=== PATIENT | male | born 1960 | race Caucasian/White ===

== ENCOUNTER 2019-05-11 13:28 | Inpatient (IN) ==
[2019-05-11 14:36] LABS: URINE SOURCE CLEAN CATCH
[2019-05-11 14:41] LABS: ALLEN TEST YES; BE 5.8 mmoll (-3.0-3.0); BLOOD TYPE ARTERIAL; HCO3-(ACT) 29.4 mmoll (20.0-26.0); METHB 0.9 % (0.0-1.5); O2(CT) 17.7 mL/dL (15.0-23.0); O2HB 94.6 % (95.0-99.0); PCO2(98.6) 44 mmHg (35-45); PO2(98.6) 73 mmHg (60-100); SAMPLE BLOOD; SAO2 96.4 % (95.0-100.0); THB 13.3 g/dL (11.5-17.4); pH(98.6) 7.45 (7.35-7.45)
[2019-05-11 14:42] LABS: MODALITY CANNULA
--- NOTE | 2019-05-11 14:45 | Diag Imaging Result Doc PS360 ---
EXAM: CHEST-1 VIEW 05/11/2019 HISTORY: SOB TECHNIQUE: Erect AP portable at 1434 COMMENT: Compared to 04/14/2019 there has been minimal improvement with regard to the right lung. Some of this may be due to differences in inspiration. There are still scattered coarse opacities bilaterally.This is still worse than on 12/02/2017. IMPRESSION: Pulmonary edema and/or pneumonia. Electronically signed by Javon Blankenship 05/11/2019 2:43 PM
[2019-05-11 14:47] LABS: BILIRUBIN URINE NEGATIVE (NEGATIVE); BLOOD URINE SMALL (NEGATIVE); COLOR YELLOW; GLUCOSE URINE NEGATIVE (NEGATIVE); KETONE URINE NEGATIVE (NEGATIVE); LEUKOCYTES URINE NEGATIVE (NEGATIVE); NITRITE URINE NEGATIVE (NEGATIVE); PROTEIN URINE 30 mg/dL (NEGATIVE); SP GRAVITY URINE 1.019; TURBIDITY URINE CLEAR (CLEAR); UROBILINOGEN URINE 3 mg/dL (NORMAL)
[2019-05-11 14:48] LABS: UR EPITHELIAL CELLS <10 /HPF (<10); URINE BACTERIA NEGATIVE /HPF; URINE RBC <10 /HPF (<10); URINE WBC <10 /HPF (<10)
[2019-05-11] MEDS ORDERED: TYLENOL PR ONE (14:48)
[2019-05-11] MEDS ORDERED: NS 1,000 ML IV ONE (14:48)
[2019-05-11] MEDS ORDERED: NS 2,100 ML IV ONE (14:50)
[2019-05-11] MEDS ORDERED: TYLENOL ONE (14:56)
[2019-05-11] MEDS ORDERED: NS 1,000 ML ONE (14:56)
[2019-05-11 14:57] LABS: UR AMPHETAMINES QUAL PRESUMPTIVE POSITIVE (NONE DETECT); UR BARBITUATES QUAL NONE DETECTED (NONE DETECT); UR BENZODIAZEPIN QUAL NONE DETECTED (NONE DETECT); UR CANNABINOIDS QUAL NONE DETECTED (NONE DETECT); UR COCAINE QUAL NONE DETECTED (NONE DETECT); UR METHADONE QUAL NONE DETECTED (NONE DETECT); UR OPIATES QUAL PRESUMPTIVE POSITIVE (NONE DETECT); UR OXYCODONE QUAL NONE DETECTED (NONE DETECT); UR PCP QUAL NONE DETECTED (NONE DETECT)
[2019-05-11 14:58] LABS: LYMPH# 0.38 X1000 (1.2-3.4); LYMPH% 2.6 % (20.5-51.1); MCH 28.3 PG (27-31); MCHC 32.5 g/dL (33-37); MONO# 1.01 X1000 (0.11-0.59); MONO% 6.9 % (1.7-9.3); MPV 11.6 FL (7.4-10.4); NEUT# 13.23 X1000 (1.4-6.5); NEUT% 90.5 % (42.2-75.2); PLT 309 X1000 (130-400); RDW 15.7 % (11.5-14.5); WBC 14.62 X1000 (4.8-10.8)
[2019-05-11 15:02] LABS: INR 1.03; PROTIME 13.7 Seconds (11.0-16.0)
[2019-05-11 15:03] LABS: PTT 33.6 Seconds (22.3-41.8)
[2019-05-11 15:14] LABS: AGAP 14; ALB/GLOB RATIO 0.9; ALBUMIN 3.3 g/dL (3.5-5.0); ALKALINE PHOSPHATASE 123 U/L (32-122); BUN 11 mg/dL (8-22); CHLORIDE 91 mmol/L (98-107); CK PROFILE 100 U/L (24-204); COSMO 266; CREATININE 0.8 mg/dL (0.7-1.2); ESTIMATED GFR > 60; GLUCOSE 104 mg/dL (70-104); GOT 28 U/L (10-34); GPT 29 U/L (10-44); POTASSIUM 4.7 mmol/L (3.5-5.1); SODIUM 133 mmol/L (136-145); TCO2 28 mmol/L (25-35); TOTAL BILIRUBIN 1.24 mg/dL (0.20-1.00); TOTAL PROTEIN 6.9 g/dL (6.3-8.3)
[2019-05-11] MEDS ORDERED: ZOSYN 3.375 GM in NS 50 ML IV ONE (15:18)
[2019-05-11] MEDS ORDERED: SOLU-MEDROL IV ONE (16:28)
--- NOTE | 2019-05-11 16:55 | PROVIDER DOCUMENTATION ---
This chart was entered by Yadi Nicolas Scribe, acting as scribe for Walter Nieves CRNP. HPI-Respiratory General - General Chief Complaint: Fever Stated Complaint: COUGH, SOB, FEVER Time Seen by Provider: 05/11/19 14:04 Source: patient, family (spoke with on the phone), EMS (first response) Unable to obtain history due to:: altered Allergies/Adverse Reactions: Patient Allergies Allergy/AdvReac Type Severity Reaction Status Date / Time No Known Allergies Allergy Verified 05/11/19 14:33 Home Medications: Home Medication List Medication Instructions Recorded Confirmed Last Taken Type Cyclobenzaprine [Flexeril] 10 mg PO TID PRN 07/18/13 11/13/13 11/13/13 05:00 History Esomeprazole [Nexium] 40 mg PO DAILY 07/18/13 11/13/13 11/13/13 05:00 History Gabapentin [Neurontin] 600 mg PO TID 07/18/13 11/13/13 11/13/13 05:00 History Hydroxyzine [Atarax] 25 mg PO BID PRN 07/18/13 11/13/13 11/13/13 15:00 History Potassium Chloride E.r. [K-Dur] 10 meq PO DAILY 07/18/13 11/13/13 11/13/13 05:00 History Prednisone 10 mg PO DAILY 07/18/13 11/13/13 11/13/13 05:00 History Oxycodone HCl/Acetaminophen 1 each PO Q6H PRN PRN 11/14/13 11/14/13 11/13/13 17:00 History [Endocet 7.5-325 mg Tablet] Albuterol 2.5MG/Ipratrop 0.5MG 3 ml INH Q6H PRN PRN #30 neb 08/26/16 Unknown Rx [Duoneb] Azithromycin [Zithromax Z-Luis M] 250 mg PO DIRECTED #1 pkg 08/26/16 Unknown Rx Prednisone 20 mg PO DAILY #60 tablet 08/26/16 Unknown Rx - History of Present Illness-Resp Nature of Presenting Problem: 58 yowm presents to the ed ed via ems with emergency traffic. pt comes in with ams, cough, fever and significant respiratory distress. was called and re ports his son came to visit from [place] and pt has been out in public and been in and out of stores. pt has hx of [place] poisoning. sts pt has had fever, cough, sob, confusion, diaphoresis with acute onset at 0100am this morning. per via phone conversation he has worsened since onset Severity in ED: reports: severe Onset/Duration: reports: this morning (0100am) Timing: reports: still present, constant, getting worse Context: reports: other (son recently came home from [place] and had contact with pt) Cough Quality/Degree: reports: moderate, dry cough Episode Frequency: frequent episodes Current Respiratory Medication Therapy: Initiated see nurses note Modifying Factors: worse with: coughing Associated Symptoms: reports: cough, fever/chills, shortness of breath, sweaty Similar Symptoms Previously?: Yes (copd) Recently seen or treated by another doctor?: No Review of Systems - Adult - REVIEW OF SYSTEMS - ADULT ROS:: unobtainable per condition Constitutional: reports: chills, fever Eyes: reports: no symptoms reported Ears, Nose, Mouth & Throat: reports: no symptoms reported Cardiovascular: denies: chest pain, edema Respiratory: reports: see HPI, cough, shortness of breath Gastrointestinal: reports: no symptoms reported Genitourinary: reports: no symptoms reported Musculoskeletal: reports: see HPI, back pain (chronic) Integumentary: reports: no symptoms reported Neurological: reports: no symptoms reported Psychiatric: reports: no symptoms reported Endocrine: reports: no symptoms reported Hematologic/Lymphatic: reports: no symptoms reported Allergic/Immunologic: reports: no symptoms reported All Other Systems: Reviewed and Negative Past History - Adult - PAST MEDICAL HISTORY-ADULT Review of Records: reports: Old Records Reviewed, Nursing Assessment Review, Medications Reviewed, Social history reviewed & non-contributory. Major Childhood Illnesses: reports: denies history Cardiovascular: reports: HTN, hyperlipidemia Respiratory: reports: COPD, cancer (lung cancer in remission) Gastrointestinal: reports: denies history Genitourinary: reports: other (born with single kidney) Musculoskeletal: reports: chronic pain Neurological: reports: denies history Psychiatric: reports: anxiety Endocrine/Immune: reports: denies history Other Conditions: reports: denies history Additional History: cobalt poisoning - PRIOR SURGERIES/PROCEDURES Surgical/Procedure History: reports: other (pain pump) - IMMUNIZATION STATUS Childhood Immunizations: See Nurse Assessment Flu Vaccine: See Nurse Assessment - FAMILY HISTORY Family History: reviewed, not pertinent - SOCIAL HISTORY Smoking: chew Provider spent 3-5 mins advising pt. on dangers of tobacco.: Discussed manners to quit use, and f/u contacts for add'l counseling. Substance Use: denies Living Situation: family Physical Exam-General - PHYSICAL EXAM-ADULT Exam Limited by: pt has intermittent ams Initial Vital Signs Reviewed: Yes (temp-100.8 HR-135 RR28) - CONSTITUTIONAL General Appearance: alert, severe distress - EYES Eyes: PERRL/EOMI, pale conjunctivae - HEAD, EARS, NOSE, MOUTH & THROAT HENMT: other (no teeth). negative: moist mucous membranes (dry oral) - NECK Neck: normal inspection - RESPIRATORY Respiratory: respiratory distress (signaficant), decreased breath sounds (bilateral upper), accessory muscle use, rales (bilateral lower), rhonchi (bilateral lower), increased rate (428) - CARDIOVASCULAR Cardiovascular: tachycardia (130) - CHEST (BREASTS) Chest/Breast: other (barrel chest) - GASTROINTESTINAL (ABDOMEN) Abdominal Exam: soft - GENITOURINARY Male Genitalia: deferred Rectal Exam: deferred Hemoccult Exam: deferred - LYMPHATIC Lymphatic: no adenopathy - MUSCULOSKELETAL Back Exam: no CVA tenderness, no vertebral tenderness Extremity: normal range of motion - SKIN Integumentary: diaphoresis, other (flushed) - PSYCHIATRIC Psych/Mental Status: disoriented x 3, disheveled Progress - PLAN OF CARE/RESULTS Progress/Plan/Lab Results: Vital Signs - 8 hr 05/11/19 14:19 05/11/19 14:43 05/11/19 16:18 Temperature 100.8 F H Pulse Rate 135 H 132 H 108 H Respiratory Rate 28 H 23 24 Blood Pressure 138/59 109/68 145/94 O2 Sat by Pulse Oximetry 95 94 L 98 05/11/19 16:28 Temperature 98 F Pulse Rate Respiratory Rate Blood Pressure O2 Sat by Pulse Oximetry 05/11/19 13:50 Influenza Screen - Final Nasopharyngeal 05/11/19 13:50 Group A Strep Rapid Antigen - Final Throat Laboratory Results - last 24 hr 05/11/19 05/11/19 05/11/19 13:50 13:50 13:50 WBC 14.62 H RBC 4.60 L Hgb 13.0 L Hct 40.0 L MCV 87.0 MCH 28.3 MCHC 32.5 L RDW Std Deviation 15.7 H Plt Count 309 MPV 11.6 H Neut % (Auto) 90.5 H Lymph % (Auto) 2.6 L [place] % (Auto) 6.9 Eos % (Auto) 0.0 Baso % (Auto) 0.0 Neut # (Auto) 13.23 H Lymph # (Auto) 0.38 L [place] # (Auto) 1.01 H Eos # (Auto) 0.00 Baso # (Auto) 0.00 PT INR PTT (Actin FS) Specimen Type Sample Site pH pCO2 pO2 HCO3 Base Excess Oxyhemoglobin ABG O2 Sat (Calculated) ABG O2 Saturation ABG Carboxyhemoglobin ABG Methemoglobin Ronni Test A-a O2 Difference Total Hemoglobin Lactate Blood Gas Modality FiO2 % Sodium 133 L Potassium 4.7 Chloride 91 L Carbon Dioxide 28 Anion Gap 14 BUN 11 Creatinine 0.8 Estimated GFR/1.73 m2 > 60 BUN/Creatinine Ratio 14 Glucose 104 Calculated Osmolality 266 Calcium 9.0 Total Bilirubin 1.24 H AST 28 ALT 29 Alkaline Phosphatase 123 H Creatine Kinase 100 Troponin T High Sens 34 H Total Protein 6.9 Albumin 3.3 L Globulin 3.6 Albumin/Globulin Ratio 0.9 Plasma Lactate Urine Source Urine Color Urine Turbidity Urine pH Ur Specific Alexis Urine Protein Ur Glucose (Stick) Ur Ketones (Stick) Urine Blood Urine Nitrite Urine Bilirubin Urobilinogen Dipstick Urine Leukocytes Urine WBC (Auto) Urine RBC (Auto) U Epithel Cells (Auto) Urine Bacteria (Auto) Urine Opiates Screen Ur Oxycodone Screen Ur Methadone, Qual Ur Barbiturates Screen Ur Phencyclidine Scrn Ur Amphetamines Screen U Benzodiazepines Scrn Urine Cocaine Screen U Cannabinoids Screen 05/11/19 05/11/19 05/11/19 13:50 13:50 14:10 WBC RBC Hgb Hct MCV MCH MCHC RDW Std Deviation Plt Count MPV Neut % (Auto) Lymph % (Auto) [place] % (Auto) Eos % (Auto) Baso % (Auto) Neut # (Auto) Lymph # (Auto) [place] # (Auto) Eos # (Auto) Baso # (Auto) PT 13.7 INR 1.03 PTT (Actin FS) 33.6 Specimen Type Sample Site pH pCO2 pO2 HCO3 Base Excess Oxyhemoglobin ABG O2 Sat (Calculated) ABG O2 Saturation ABG Carboxyhemoglobin ABG Methemoglobin Ronni Test A-a O2 Difference Total Hemoglobin Lactate Blood Gas Modality FiO2 % Sodium Potassium Chloride Carbon Dioxide Anion Gap BUN Creatinine Estimated GFR/1.73 m2 BUN/Creatinine Ratio Glucose Calculated Osmolality Calcium Total Bilirubin AST ALT Alkaline Phosphatase Creatine Kinase Troponin T High Sens Total Protein Albumin Globulin Albumin/Globulin Ratio Plasma Lactate 1.1 Urine Source Urine Color Urine Turbidity Urine pH Ur Specific Alexis Urine Protein Ur Glucose (Stick) Ur Ketones (Stick) Urine Blood Urine Nitrite Urine Bilirubin Urobilinogen Dipstick Urine Leukocytes Urine WBC (Auto) Urine RBC (Auto) U Epithel Cells (Auto) Urine Bacteria (Auto) Urine Opiates Screen PRESUMPTIVE POSITIVE A Ur Oxycodone Screen NONE DETECTED Ur Methadone, Qual NONE DETECTED Ur Barbiturates Screen NONE DETECTED Ur Phencyclidine Scrn NONE DETECTED Ur Amphetamines Screen PRESUMPTIVE POSITIVE A U Benzodiazepines Scrn NONE DETECTED Urine Cocaine Screen NONE DETECTED U Cannabinoids Screen NONE DETECTED 05/11/19 05/11/19 05/11/19 14:10 14:10 14:35 WBC RBC Hgb Hct MCV MCH MCHC RDW Std Deviation Plt Count MPV Neut % (Auto) Lymph % (Auto) [place] % (Auto) Eos % (Auto) Baso % (Auto) Neut # (Auto) Lymph # (Auto) [place] # (Auto) Eos # (Auto) Baso # (Auto) PT INR PTT (Actin FS) Specimen Type ARTERIAL Sample Site R RADIAL pH 7.45 pCO2 44 pO2 73 HCO3 29.4 H Base Excess 5.8 H Oxyhemoglobin 94.6 L ABG O2 Sat (Calculated) 17.7 ABG O2 Saturation 96.4 ABG Carboxyhemoglobin 1.10 ABG Methemoglobin 0.9 Ronni Test YES A-a O2 Difference 129.0 Total Hemoglobin 13.3 Lactate 0.90 Blood Gas Modality CANNULA FiO2 % 36.0 Sodium Potassium Chloride Carbon Dioxide Anion Gap BUN Creatinine Estimated GFR/1.73 m2 BUN/Creatinine Ratio Glucose Calculated Osmolality Calcium Total Bilirubin AST ALT Alkaline Phosphatase Creatine Kinase Troponin T High Sens Total Protein Albumin Globulin Albumin/Globulin Ratio Plasma Lactate Urine Source CLEAN CATCH Cancelled Urine Color YELLOW Cancelled Urine Turbidity CLEAR Cancelled Urine pH 6.0 Cancelled Ur Specific Alexis 1.019 Cancelled Urine Protein 30 A Cancelled Ur Glucose (Stick) NEGATIVE Cancelled Ur Ketones (Stick) NEGATIVE Cancelled Urine Blood SMALL A Cancelled Urine Nitrite NEGATIVE Cancelled Urine Bilirubin NEGATIVE Cancelled Urobilinogen Dipstick 3 A Cancelled Urine Leukocytes NEGATIVE Cancelled Urine WBC (Auto) <10 Cancelled Urine RBC (Auto) <10 Cancelled U Epithel Cells (Auto) <10 Cancelled Urine Bacteria (Auto) NEGATIVE Cancelled Urine Opiates Screen Ur Oxycodone Screen Ur Methadone, Qual Ur Barbiturates Screen Ur Phencyclidine Scrn Ur Amphetamines Screen U Benzodiazepines Scrn Urine Cocaine Screen U Cannabinoids Screen Orders Category Date Time Status Cardiac Monitoring NOW Care 05/11/19 14:24 Active IV Insertion NOW Care 05/11/19 14:24 Completed NEWS Score >or=5:Order NEWS Bundle S.O. NOW Care 05/11/19 14:24 Active Notify Provider of NEWS Score NOW Care 05/11/19 14:24 Active CHEST-1 VIEW [RAD] Stat Exams 05/11/19 14:24 Completed ABG [RESP] Routine Lab 05/11/19 14:35 Completed BLOOD CULTURE [BLDCUL] Stat Lab 05/11/19 14:01 Results BNP [PRO B-NATRIURETIC PEPTIDE] Stat Lab 05/11/19 16:28 Uncollected CBC WITH ELECTRONIC DIFF [HEME] Stat Lab 05/11/19 13:50 Completed CK PROFILE [SP CHEM] Stat Lab 05/11/19 13:50 Completed COMPREHENSIVE METABOLIC PANEL [CHEM] Stat Lab 05/11/19 13:50 Completed COVID19 [RF] Routine Lab 05/11/19 16:27 Received DIRECT STREP Stat Lab 05/11/19 13:50 Completed Flu Swab [INFLUENZA SCREEN A/B] Stat Lab 05/11/19 13:50 Completed LACTATE, PLASMA [CHEM] Lab 05/11/19 13:50 Completed LACTATE, PLASMA [CHEM] Lab 05/11/19 17:30 Uncollected LACTATE, PLASMA [CHEM] Lab 05/11/19 20:30 Uncollected PROTIME WITH INR [COAG] Stat Lab 05/11/19 13:50 Completed PTT [COAG] Stat Lab 05/11/19 13:50 Completed TROPONIN T HIGH SENSITIVITY Stat Lab 05/11/19 13:50 Completed UA NIMS W/REFLEX CULT [URINALYSIS] Stat Lab 05/11/19 14:10 Completed URINE DRUG SCREEN Stat Lab 05/11/19 14:10 Completed 0.9% Sodium Chloride Inj [Ns] 1,000 ml Med 05/11/19 14:56 Discontinued .ROUTE As directed 0.9% Sodium Chloride Inj [Ns] 1,000 ml Med 05/11/19 14:48 Discontinued IV 999 mls/hr 0.9% Sodium Chloride Inj [Ns] 2,100 ml Med 05/11/19 14:50 Active IV 999 mls/hr Acetaminophen [Tylenol] Med 05/11/19 14:56 Discontinued 650 mg .ROUTE .STK-MED ONE Acetaminophen [Tylenol] Med 05/11/19 14:48 Discontinued 650 mg [place] NOW ONE Methylprednisolone Sod Succ [Solu-Medrol] Med 05/11/19 16:28 Discontinued 60 mg IV NOW ONE Piperacillin/Tazobactam [Zosyn] 3.375 gm Med 05/11/19 15:18 Discontinued 0.9% Sodium Chloride Inj [Ns] 50 ml IV NOW O2 Per Protocol Stat Oth 05/11/19 14:24 Active Result Diagrams: 05/11/19 13:50 05/11/19 13:50 - REASSESSMENT Reassessment #1 Time Reassessed: 15:01 Status: unchanged - XRAY 1 XRAY: Bilateral XRAY Study: Chest Impression: See EMR Report (IMPRESSION: Pulmonary edema and/or pneumonia. Electronically signed by Javon Blankenship 05/11/2019 2:43 PM) - CONSULTS/PCP/HOSPITALIST Notification #1 *Consult/PCP/Hospitalist*: mrs fan his Time Discussed: 14:32 ( gives permission to place on the vent if needed due to resp distress) Reason/Comments: phone conversation #2 Consult: hospitalist Time Discussed: 15:08 (spoke with anibal) Consult Disposition: Admit #3 Consult: dr elena pmd Time Discussed: 15:36 (dr elena sts he knows pt well and does not want intubation ) Reason/Comments: PMD is at bedside Departure - Departure Date of Disposition Decision: 05/11/19 Time of Disposition Decision: 16:53 DIAGNOSIS: Respiratory distress, acute Leukocytosis Qualifiers: Leukocytosis type: unspecified Qualified Code(s): D72.829 - Elevated white blood cell count, unspecified Pneumonia Qualifiers: Pneumonia type: due to unspecified organism Laterality: unspecified laterality Disposition: ADMITTED INPATIENT 09 Certified Medical Emergency: Emergent Condition: Critical Additional Instructions: ED Follow Up Instructions: You have been treated by a care provider in the Emergency Department. These instructions are being provided to you so you can have an understanding of how to care for yourself upon discharge. Upon discharge from the Emergency Department, you are responsible for making arrangements for follow-up care by a physician of your choice. Take all prescribed medications as directed. Return to the Emergency Department immediately for any new or worsening symptoms . You may call the Physician Referral phone number at [phone] to obtain a list of Physicians who are taking new patients. Referrals and Follow-Ups: Pavel Elena MD [Primary Care Provider] - - Critical Care Note This patient required my direct & personal management of CC.: Yes Total Time (mins): 42 Critical Care Statement: This patient required my direct personal management to treat or rule out processes, the absence of which, could potentiallly result in sudden, clinically significant life or limb threatening deterioration. Attestation - Physician/ CHIRAG Attestation Patient care was provided by Advanced Practice Provider:: Yes Advanced Practice Provider:: Walter Nieves (milla) Advanced Practice Provider documentation review:: The Mid-level provider documentation, treatment plan and medical decision making was reviewed by the physician who agrees with all treatment and medical decision making by the MLP. The physician spent face to face time with patient:: Yes (dr joseph at bedside speaking with pt) Advanced Practice Provider documentation review:: Supervising physician onsite and consulted in the evaluation and care of this patient. The physician did have a face to face encounter with the patient. This chart was documented by the indicated scribe, (Yadi Nicloas Scribe) and accurately reflects the services I performed and decisions made by me, Walter Nieves CRNP, as attested by the provider's signature.
[2019-05-11] MEDS ORDERED: DUONEB (A & A) INH PRN (18:04)
[2019-05-11] MEDS ORDERED: FLEXERIL PO PRN (18:04)
[2019-05-11] MEDS: PROTONIX IV SCH (18:31)
[2019-05-11] MEDS: SODIUM CHLORIDE 0.9% INJ SCH (18:31)
[2019-05-11] MEDS: LOVENOX SUBQ SCH (18:31)
--- NOTE | 2019-05-11 19:34 | HISTORY AND PHYSICAL ---
HISTORY OF PRESENT ILLNESS: Mr. Barajas is a 58-year-old gentleman, known case of chronic respiratory failure, chronic obstructive pulmonary disease, pulmonary fibrosis, cobalt toxicity, chronic pain, not doing well last few days. The patient had increasing cough, chest congestion, increasing shortness of breath, decreased exercise tolerance. The patient was getting short of breath with minimal exertion, cough productive of yellowish-greenish sputum. The patient's son visited him from [place], and patient started getting sick. No documented high-grade fever or chills. The patient when came he was tachycardic and tachypneic. The patient was afebrile, evaluated in the ER. Because of the history, they entertained the possibility of COVID-19, admitted patient for further care. The patient initially had a fever of 100.8, heart rate 135, respiratory rate 28 and blood pressure 138/59. The patient did have significant cough, shortness of breath. The patient was evaluated in the ER, admitted for further care. The patient was tachypneic and tachycardic. He was complaining of pain in the lower back, fever, chills. Decreased exercise tolerance. Oral intake was poor. The patient does have some confusion and disorientation. No dysuria or hematuria, unquantified weight loss. No typical chest pain. The patient did have palpitations. No further history available at this time. ALLERGIES: No known drug allergy. MEDICATIONS: The patient is on Nexium, prednisone, bronchodilator treatment, Flexeril, Neurontin, Atarax, Endocet, potassium, nebulizer treatment, oxygen. PAST MEDICAL HISTORY: [place] toxicity and pulmonary fibrosis, chronic low back pain, muscle spasm, gastritis and reflux disease, peripheral neuropathy, hyperlipidemia, unquantified weight loss. The patient had pain pump. PERSONAL HISTORY: , lives with the . The patient does smoke. Denied alcohol or substance abuse. The patient is on disability. FAMILY HISTORY: Noncontributory. PHYSICAL EXAMINATION: GENERAL: Middle-aged white gentleman who does look older for his age, in mild distress. VITAL SIGNS: As per HPI, blood pressure 138/59, pulse 135, respirations 28, temperature 100.8 degrees, O2 saturation 95%. SKIN: Senile turgor. No rash or petechiae. HEAD: Atraumatic, normocephalic. [place] conjunctivae. Anicteric sclerae. Extraocular muscle movement normal. Fundus cannot be penetrated. Good oral hygiene. No tonsillopharyngeal congestion or exudate. Ears and nose benign. NECK: Supple. No JVD, thyromegaly or lymphadenopathy. CHEST: Bibasilar crepitation. Bilateral wheezing. No rales. At times, accessory muscle of respiratory movement present. CARDIOVASCULAR: S1 and S2. Tachycardia. ABDOMEN: Soft, scaphoid. Bowel sounds present. The patient does have pain pump present in the left side of the abdomen. EXTREMITIES: No cyanosis, clubbing. No acute DVT. CENTRAL NERVOUS SYSTEM: Alert, awake, answering questions fairly well. MUSCULOSKELETAL SYSTEM: Tenderness of lumbosacral spine. LABORATORY DATA: Revealed WBC count 14.62, hemoglobin 13, hematocrit 40, platelet count 309,000. PT/INR 1.03, PTT 33.6. Blood gas: pH 7.45, pCO2 44, pO2 73, O2 saturation 94.6. Electrolytes: Sodium 133, potassium 4.7, chloride 91, CO2 was 28. Total bilirubin 1.24, alkaline phosphatase 123, troponin 34. Urinalysis results pending. Toxicology result: Urine drug screen positive for opiates and amphetamines. IMAGING: Chest x-ray revealed pulmonary edema and/or pneumonia. ASSESSMENT: Patient admitted with chronic obstructive pulmonary disease exacerbation, chronic respiratory failure, possible pneumonia, pulmonary fibrosis, gastritis and reflux disease, chronic low back pain. Lab data revealed pH 7.45, pCO2 44, pO2 was 73, O2 saturation was 96.4. CBC results reviewed. It was satisfactory. PT/INR 1.03. PTT was 33.6. Electrolytes and urinalysis results reviewed. Drug screen result also reviewed. PLAN: Admit the patient. IV antibiotics, steroids, pain management. Continue home medicine. Overall plan discussed with the patient. The patient told me multiple times he does not want to be placed on life support. Patient always wanted to be DNR 1, and we made him DNR 1. Continue home medicine, gentle hydration. cc: Pavel Perez MD
[2019-05-11] MEDS: ZOSYN 3.375 GM in NS 50 ML IV SCH (20:33)
[2019-05-11] MEDS: NEURONTIN PO SCH (20:33)
[2019-05-11] MEDS: POTASSIUM CHLORIDE 10 MEQ in NS 1,000 ML IV SCH (21:24)
[2019-05-11] MEDS: COMBIVENT RESPIMAT INHALER INH PRN (22:01)
[2019-05-11] MEDS ORDERED: LASIX IV ONE (23:57)
[2019-05-11] MEDS ORDERED: CATAPRES PO PRN (23:58)
[2019-05-12] MEDS: SOLU-MEDROL IV SCH ×4 (00:45→23:35)
[2019-05-12] MEDS: ZOSYN 3.375 GM in NS 50 ML IV SCH ×4 (03:57→23:36)
[2019-05-12 04:34] LABS: BASO# 0.03 X1000 (0.0-0.2); BASO% 0.4 % (0.0-0.8); HEMATOCRIT 39.6 % (42.0-52.0); HEMOGLOBIN 12.5 g/dL (14.0-18.0); IMM GRAN# 0.05 X1000 (0.0-0.04); IMM GRAN% 0.6 % (0.0-0.5); LYMPH# 0.44 X1000 (1.2-3.4); LYMPH% 5.3 % (20.5-51.1); MCH 27.7 PG (27-31); MCHC 31.6 g/dL (33-37); MCV 87.8 FL (81-99); MONO# 0.23 X1000 (0.11-0.59); MONO% 2.8 % (1.7-9.3); MPV 11.4 FL (7.4-10.4); NEUT% 90.9 % (42.2-75.2); PLT 308 X1000 (130-400); RBC 4.51 XMIL (4.7-6.1); RDW 15.6 % (11.5-14.5); WBC 8.35 X1000 (4.8-10.8)
[2019-05-12 04:48] LABS: AGAP 13; ALB/GLOB RATIO 1.1; ALBUMIN 3.1 g/dL (3.5-5.0); ALKALINE PHOSPHATASE 107 U/L (32-122); BUN 12 mg/dL (8-22); CALCIUM 8.2 mg/dL (8.8-10.2); CHLORIDE 94 mmol/L (98-107); COSMO 274; CREATININE 0.6 mg/dL (0.7-1.2); ESTIMATED GFR > 60; GLUCOSE 134 mg/dL (70-104); GOT 16 U/L (10-34); GPT 25 U/L (10-44); MAGNESIUM 1.7 mg/dL (1.5-2.7); PHOSPHORUS 4.6 mg/dL (2.7-4.5); SODIUM 136 mmol/L (136-145); TCO2 29 mmol/L (25-35); TOTAL BILIRUBIN 0.84 mg/dL (0.20-1.00)
[2019-05-12 05:01] LABS: LYMPHS 4 % (21-51); SEGS 96 % (42-75)
[2019-05-12] MEDS: POTASSIUM CHLORIDE 10 MEQ in NS 1,000 ML IV SCH (06:12)
[2019-05-12] MEDS: NEURONTIN PO SCH ×3 (06:48→20:32)
[2019-05-12] MEDS: PERCOCET-5 PO PRN ×3 (07:01→23:33)
--- NOTE | 2019-05-12 08:21 | Diag Imaging Result Doc PS360 ---
CHEST-PORTABLE - 05/12/2019 INDICATION: cough COMPARISON: 05/11/2019 FINDINGS: There has been slight decrease in the density of the extensive bilateral ill-defined infiltrates. There is stable severe pulmonary fibrosis in the lung bases. Heart size is normal. No pneumothorax or pleural effusion. IMPRESSION: Decrease in density of the ill-defined bilateral infiltrates compatible with pneumonia or viral infection. Electronically signed by Jay Moseley 05/12/2019 8:18 AM
[2019-05-12] MEDS: COMBIVENT RESPIMAT INHALER INH PRN ×2 (08:36→23:45)
[2019-05-12] MEDS: KLOR-CON PO SCH (10:34)
[2019-05-12] MEDS ORDERED: NS 500 ML IV ONE (13:05)
[2019-05-12] MEDS ORDERED: CARDIZEM IV ONE (13:10)
[2019-05-12] MEDS ORDERED: NS 500 ML ONE (13:19)
[2019-05-12] MEDS ORDERED: CARDIZEM 100 MG/NS 100 MG/100 ML IVPB IV SCH (14:15)
[2019-05-12] MEDS: MORPHINE IV PRN (14:35)
--- NOTE | 2019-05-12 15:46 | EKG Report ---
Test Performed on : 05/12/2019 12:58:31 PM Test Reason : CAT CALL Blood Pressure : / mmHG Vent. Rate : 204 BPM Atrial Rate : 210 BPM P-R Int : 000 ms QRS Dur : 070 ms QT Int : 230 ms P-R-T Axes : 000 057 263 degrees QTc Int : 423 ms Critical Test Result: High HR Supraventricular tachycardia. ST & T wave abnormality, consider inferior ischemia ST & T wave abnormality, consider anterolateral ischemia Abnormal ECG When compared with ECG of 14-APR-2019 09:35, (Unconfirmed) Vent. rate has increased BY [address] now depressed in Anterolateral leads Nonspecific T wave abnormality now evident in Inferior leads Nonspecific T wave abnormality, worse in Anterolateral leads Confirmed by Lazaro Dyer MD ([id number]) on 05/13/2019 3:42:44 PM
[2019-05-12 17:13] LABS: BASO# 0.04 X1000 (0.0-0.2); BASO% 0.3 % (0.0-0.8); HEMOGLOBIN 13.6 g/dL (14.0-18.0); IMM GRAN# 0.13 X1000 (0.0-0.04); IMM GRAN% 0.9 % (0.0-0.5); LYMPH# 0.64 X1000 (1.2-3.4); LYMPH% 4.3 % (20.5-51.1); MCH 27.8 PG (27-31); MCHC 31.6 g/dL (33-37); MCV 87.8 FL (81-99); MONO# 0.69 X1000 (0.11-0.59); MONO% 4.6 % (1.7-9.3); MPV 11.5 FL (7.4-10.4); NEUT# 13.41 X1000 (1.4-6.5); NEUT% 89.9 % (42.2-75.2); PLT 419 X1000 (130-400); RDW 15.6 % (11.5-14.5); WBC 14.91 X1000 (4.8-10.8)
[2019-05-12] MEDS: LOVENOX SUBQ SCH (17:21)
[2019-05-12 17:37] LABS: AGAP 10; ALB/GLOB RATIO 0.6; ALBUMIN 2.5 g/dL (3.5-5.0); ALKALINE PHOSPHATASE 110 U/L (32-122); BUN 20 mg/dL (8-22); CALCIUM 9.2 mg/dL (8.8-10.2); CHLORIDE 99 mmol/L (98-107); COSMO 288; CREATININE 0.7 mg/dL (0.7-1.2); ESTIMATED GFR > 60; GLUCOSE 206 mg/dL (70-104); GOT 19 U/L (10-34); GPT 24 U/L (10-44); POTASSIUM 3.6 mmol/L (3.5-5.1); SODIUM 140 mmol/L (136-145); TCO2 31 mmol/L (25-35); TOTAL BILIRUBIN 0.51 mg/dL (0.20-1.00); TOTAL PROTEIN 6.9 g/dL (6.3-8.3)
--- NOTE | 2019-05-12 17:45 | Diag Imaging Result Doc PS360 ---
EXAM: CHEST-PORTABLE INDICATION: PICC placement TECHNIQUE: One view COMPARISON: 05/12/2019 FINDINGS: There is a newly placed PICC line. The tip projects over the lower SVC in the expected position. Bilateral ill-defined infiltrates are unchanged. No new consolidations are identified. Cardiac silhouette is stable. IMPRESSION: Interval placement of PICC line. Stable chest, otherwise. Electronically signed by Ole Vyas 05/12/2019 5:42 PM
[2019-05-12] MEDS: PROTONIX IV SCH (17:50)
[2019-05-12] MEDS: SODIUM CHLORIDE 0.9% INJ SCH (17:50)
[2019-05-12 18:38] LABS: BANDS 2 % (0-1); LYMPHS 7 % (21-51); SEGS 91 % (42-75)
--- NOTE | 2019-05-12 19:38 | PROGRESS NOTE ---
DATE: 05/12/2019 SUBJECTIVE: I evaluated Mr. Barajas in the morning and then re-evaluated in the evening. A 58-year- old white gentleman admitted with chest congestion, cough, shortness of breath. The patient does have history of COPD, pulmonary fibrosis and cobalt toxicity. This morning patient seems to be getting better, no high-grade fever or chills. During noontime, they had to call [facility] because patient was getting short of breath, tachycardic. His heart rate was around 200. I gave him some fluid, Cardizem. Patient was not responding well, gave him morphine, transferred patient to ICU for close monitoring. Patient is DNR. I did talk to patient's son about his condition and poor prognosis. We had problem with IV access, and I requested PICC line. The patient denied any fever or chills. No nausea or vomiting. OBJECTIVE: Vital signs: His vital signs were noted. Patient was tachycardiac. Neck: Supple. No JVD. Lungs: Bibasilar crepitation. Heart: S1 and S2, tachycardia. Abdomen: Soft, nontender. Bowel sounds present. Central nervous system: Alert, awake, able to move all four limbs. LABORATORY DATA: Done. WBC count 14.91, hemoglobin 13.6, hematocrit 43, platelet count 419. Electrolytes were fairly benign. Potassium 3.6, sodium 140, blood sugar was 206. Calcium 9.2. RADIOLOGIC DATA: The patient's chest x-ray results reviewed. CONSIDERATION: Chronic obstructive pulmonary disease exacerbation, pulmonary fibrosis, tachyarrhythmia, chronic back pain, gastritis and reflux disease. Overall prognosis is poor. Family is aware of the prognosis. I did consultation with Dr. Ray. He is going to evaluate the patient. cc: Pavel Perez MD [facility]
[2019-05-12] MEDS: ZITHROMAX 500 MG/NS 500 MG/250 ML IVPB IV SCH (20:33)
--- NOTE | 2019-05-12 22:40 | PULMONOLOGY CONSULTATION ---
DATE: 05/12/2019 REASON FOR CONSULTATION: COPD. HISTORY OF PRESENT ILLNESS: Mr. Barajas is a 58-year-old white male with COPD, history of tobacco use, who was evaluated in this emergency room with shortness of breath 04/14/2019. The patient's CK was slightly elevated and it was recommended he stay for cardiac evaluation, but he decided to leave and go home. The patient returned to the emergency room with cough, fever, change in mental status, with increased work of breathing. His indicated that he had been exposed to a son who has been in [place], but the patient reports that his son has been diagnosed with influenza. The patient reports 1-week history of increased cough, increased yellow to green sputum production, and fever. Clinically, he reports he feels better. PAST MEDICAL HISTORY: 1. COPD. 2. Hard metal lung disease. 3. Chronic hypoxic respiratory failure. 4. Chronic back pain. 5. Gastroesophageal reflux disease. 6. Gastritis. 7. Peripheral neuropathy. SOCIAL HISTORY: Tobacco use noted. 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 No alcohol use. FAMILY HISTORY: Noncontributory to current presentation. PHYSICAL EXAMINATION: General: Reveals a chronically ill-appearing white male who appears much older than his stated age in no distress. Vital signs: Maximum temperature during this hospitalization is 100.8 degrees. HEENT: Pupils are equal and reactive. Oropharynx appears clear. Neck: Supple. Chest: Reveals scattered crackles and rhonchi bilaterally. Cardiac Exam: S1-S2. Abdomen: Soft. Extremities: Without edema. LABORATORIES: Chest x-ray 05/11/2019 reveals scattered opacities bilaterally, which is slightly worse than 12/02/2017. White blood count 14.91, hemoglobin 13.6, platelet count 419,000. Arterial blood gas reveals a pH 7.45, pCO2 of 44, pO2 of 73. IMPRESSION: A 58-year-old with 1. Hypoxemic respiratory failure. 2. Chronic obstructive pulmonary disease. 3. Supraventricular tachycardia with resolution. 4. Chronic back pain. 5. Fevers. 6. Gastroesophageal reflux disease. PLAN: 1. Agree with current regimen, which covers atypicals and gram-negative organisms along with community-acquired pneumonia. Chest x-ray changes are likely due to his known hard metal lung disease. If he does not improve as expected, would expand methicillin-resistant Staphylococcus aureus coverage. 2. Continue incentive spirometry. 3. Continue steroids. 4. Metered-dose inhaler. 5. Encourage abstinence from all tobacco products. cc: MD Pavel Marrero MD
[2019-05-12] MEDS: ATARAX PO PRN (23:34)
[2019-05-13] MEDS: ZOSYN 3.375 GM in NS 50 ML IV SCH ×6 (01:16→23:18)
[2019-05-13] MEDS: NEURONTIN PO SCH ×4 (05:22→21:52)
[2019-05-13] MEDS: PERCOCET-5 PO PRN ×3 (05:36→21:53)
[2019-05-13] MEDS: MORPHINE IV PRN ×2 (06:01→21:51)
[2019-05-13 07:02] LABS: AGAP 9; ALB/GLOB RATIO 0.7; ALBUMIN 2.6 g/dL (3.5-5.0); ALKALINE PHOSPHATASE 92 U/L (32-122); BUN 25 mg/dL (8-22); CALCIUM 8.9 mg/dL (8.8-10.2); CHLORIDE 100 mmol/L (98-107); COSMO 289; CREATININE 0.7 mg/dL (0.7-1.2); ESTIMATED GFR > 60; GLUCOSE 165 mg/dL (70-104); GOT 14 U/L (10-34); GPT 23 U/L (10-44); PHOSPHORUS 3.2 mg/dL (2.7-4.5); POTASSIUM 4.1 mmol/L (3.5-5.1); SODIUM 141 mmol/L (136-145); TCO2 32 mmol/L (25-35); TOTAL BILIRUBIN 0.46 mg/dL (0.20-1.00); TOTAL PROTEIN 6.2 g/dL (6.3-8.3)
--- NOTE | 2019-05-13 07:37 | PROGRESS NOTE ---
DATE: 05/13/2019 SUBJECTIVE: Mr. Barajas is doing fair. He denied any chest pain or palpitations. No nausea or vomiting. Yesterday, patient was tachycardic requiring IV Cardizem, and I had to transfer patient to ICU for close monitoring. COVID-19 results are pending. No nausea or vomiting. Oral intake is fair. Patient does have chronic pain. No typical chest pain. OBJECTIVE: Vital Signs: His vital signs noted. Neck: Neck is supple. No JVD. Lungs: Bibasilar crepitations. Heart: S1 and S2 heard. Abdomen: Soft, globular. Bowel sounds present. POLICE OFFICER BOOKING: Alert, awake, able to move all 4 limbs. LABORATORY DATA: Done today. Electrolytes fairly benign. BUN 25, creatinine 0.7. Appreciate Dr. Ray's help managing this patient. CONSIDERATION: 1. Chronic obstructive pulmonary disease exacerbation. 2. Tachy arrhythmia. 3. Pulmonary fibrosis. 4. Chronic pain. 5. Gastritis and reflux disease. PLAN: Continue current treatment. Close monitoring. cc: Pavel Perez MD
[2019-05-13] MEDS: SOLU-MEDROL IV SCH ×3 (08:08→23:17)
[2019-05-13] MEDS: KLOR-CON PO SCH (08:09)
[2019-05-13] MEDS: MILK OF MAGNESIA PO SCH (08:11)
[2019-05-13] MEDS: COMBIVENT RESPIMAT INHALER INH PRN (08:35)
--- NOTE | 2019-05-13 08:39 | Diag Imaging Result Doc PS360 ---
EXAM: CHEST-PORTABLE 05/13/2019 HISTORY: abnormal exam TECHNIQUE: AP portable at 0531 COMMENT: There is alveolar and interstitial opacity in both lungs particularly in the lower lobes. This was also the case on 05/12/2019 and 05/11/2019. There has been no appreciable change. The lung opacities are slightly worse compared to 12/02/2017, indicating that at least some of this is due to fibrosis. IMPRESSION: Pulmonary fibrosis plus minus pulmonary edema and/or pneumonia. Electronically signed by Javon Blankenship 05/13/2019 8:37 AM
[2019-05-13] MEDS: SODIUM CHLORIDE 0.9% INJ SCH (18:23)
[2019-05-13] MEDS: PROTONIX IV SCH (18:23)
[2019-05-13] MEDS: LOVENOX SUBQ SCH (18:24)
--- NOTE | 2019-05-13 19:21 | PULMONOLOGY PROGRESS NOTE ---
DATE: 05/13/2019 SUBJECTIVE: The patient reports he feels a little better today. His appetite has improved and he has eaten some lunch and some breakfast. No additional SVT has been documented. OBJECTIVE: HEENT: Pupils are equal and reactive. Oropharynx appears clear. Neck: Supple. Chest: Coarse rhonchi bilaterally. Cardiac: S1, S2. Abdomen: Soft. Extremities: Without edema. LABORATORIES: Chest x-ray reveals chronic fibrotic changes with mild vascular prominence. No change from yesterday or the day before. Microbiology reveals no new culture data. Sodium 141, potassium 4.1, chloride 100, bicarbonate 32, BUN 25, creatinine 0.7. IMPRESSION: A 58-year-old with: 1. Chronic obstructive pulmonary disease exacerbation. 2. Hypoxemic respiratory failure. 3. Supraventricular tachycardia, without recurrence. 4. Chronic back pain. 5. Low-grade fever, but afebrile for the last 24 hours. 6. Gastroesophageal reflux . DISCUSSION: A 58-year-old with problems outlined above. I suspect that he decompensated yesterday with his supraventricular tachycardia, but clinically appears better today. PLAN: 1. Continue Cardizem. Consider transitioning to an oral formulation if he continues to do well. 2. Continue current antibiotic regimen. 3. Continue steroids and bronchial hygiene. 4. Encourage smoking cessation. cc: MD Pavel Marrero MD
[2019-05-13] MEDS: LYRICA PO SCH (21:52)
[2019-05-13] MEDS: ATARAX PO PRN (21:52)
[2019-05-13] MEDS: ZITHROMAX 500 MG/NS 500 MG/250 ML IVPB IV SCH (21:53)
[2019-05-14] MEDS: SOLU-MEDROL IV SCH ×3 (00:46→21:25)
[2019-05-14] MEDS: ZOSYN 3.375 GM in NS 50 ML IV SCH ×4 (00:47→23:22)
[2019-05-14] MEDS: CARDIZEM PO SCH ×4 (01:12→21:24)
[2019-05-14 04:56] LABS: ALLEN TEST YES; BE 8.2 mmoll (-3.0-3.0); BLOOD TYPE ARTERIAL; HCO3-(ACT) 31.3 mmoll (20.0-26.0); METHB 0.8 % (0.0-1.5); O2(CT) 20.7 mL/dL (15.0-23.0); PCO2(98.6) 50 mmHg (35-45); PO2(98.6) 162 mmHg (60-100); SAMPLE BLOOD; SAO2 98.8 % (95.0-100.0); pH(98.6) 7.44 (7.35-7.45)
[2019-05-14 04:57] LABS: MODALITY CANNULA
[2019-05-14 06:01] LABS: BASO# 0.04 X1000 (0.0-0.2); BASO% 0.3 % (0.0-0.8); HEMATOCRIT 37.8 % (42.0-52.0); HEMOGLOBIN 11.6 g/dL (14.0-18.0); IMM GRAN% 4.3 % (0.0-0.5); LYMPH# 0.48 X1000 (1.2-3.4); LYMPH% 3.5 % (20.5-51.1); MCH 27.6 PG (27-31); MCHC 30.7 g/dL (33-37); MCV 89.8 FL (81-99); MONO# 0.44 X1000 (0.11-0.59); MONO% 3.2 % (1.7-9.3); MPV 11.3 FL (7.4-10.4); NEUT# 12.24 X1000 (1.4-6.5); NEUT% 88.7 % (42.2-75.2); PLT 330 X1000 (130-400); RBC 4.21 XMIL (4.7-6.1); RDW 15.5 % (11.5-14.5)
[2019-05-14] MEDS: NEURONTIN PO SCH ×3 (06:09→21:24)
[2019-05-14] MEDS: PERCOCET-5 PO PRN ×3 (06:10→21:46)
[2019-05-14] MEDS: MORPHINE IV PRN (06:10)
[2019-05-14 06:34] LABS: AGAP 11; ALB/GLOB RATIO 0.8; ALBUMIN 2.7 g/dL (3.5-5.0); ALKALINE PHOSPHATASE 87 U/L (32-122); BUN 22 mg/dL (8-22); CALCIUM 8.5 mg/dL (8.8-10.2); CHLORIDE 100 mmol/L (98-107); COSMO 288; CREATININE 0.6 mg/dL (0.7-1.2); ESTIMATED GFR > 60; GLUCOSE 153 mg/dL (70-104); GOT 18 U/L (10-34); GPT 29 U/L (10-44); MAGNESIUM 2.1 mg/dL (1.5-2.7); POTASSIUM 4.5 mmol/L (3.5-5.1); SODIUM 141 mmol/L (136-145); TCO2 30 mmol/L (25-35); TOTAL BILIRUBIN 0.46 mg/dL (0.20-1.00); TOTAL PROTEIN 6.1 g/dL (6.3-8.3)
--- NOTE | 2019-05-14 07:15 | Diag Imaging Result Doc PS360 ---
EXAM: CHEST-PORTABLE 05/14/2019 HISTORY: abnormal exam TECHNIQUE: AP portable at 0527 COMMENT: There continues to be diffuse coarse alveolar and interstitial opacities particularly in the lower lobes. This has not changed appreciably since 05/13/2019 or 05/12/2019. IMPRESSION: Stable chest. Electronically signed by Javon Blankenship 05/14/2019 7:12 AM
[2019-05-14] MEDS: KLOR-CON PO SCH (08:04)
[2019-05-14] MEDS: MILK OF MAGNESIA PO SCH (08:05)
[2019-05-14] MEDS: COMBIVENT RESPIMAT INHALER INH PRN (15:39)
--- NOTE | 2019-05-14 17:46 | PROGRESS NOTE ---
DATE: 05/14/2019 SUBJECTIVE: Mr. Barajas is doing better. The patient was resting well. He does have chronic low back pain. No high-grade fever or chills. Denied any nausea or vomiting. No diarrhea. Patient admitted with pulmonary fibrosis, COPD exacerbation. No typical chest pain or palpitations. The patient is kind of nervous being in the hospital. He wants to go home. His vital signs noted. OBJECTIVE: Vital Signs: Blood pressure 122/91, pulse 86, respirations 20, temperature 96.7 degrees. Neck: Supple. No JVD. Lungs: Bibasilar crepitation. Heart: S1 and S2 heard. Abdomen: Soft, nontender. Bowel sounds present. LIVING SUPERVISOR: Alert, awake. Able to move all 4 limbs. Tenderness of lumbosacral spine. The patient's laboratory data done today, WBC count 13.8, hemoglobin 11.6, hematocrit 37.8, platelet count 330,000. Blood gas done today, pH 7.44, pCO2 of 50, PO2 was 162. This was done on 3 L via nasal cannula. Electrolytes were fairly benign. Magnesium 2.1. Chest x-ray results reviewed, which revealed stable chest. The patient was on IV Cardizem which I changed to p.o. Cardizem. The patient is tolerating it fairly well. Overall, the patient is doing well. CONSIDERATION: 1. Chronic obstructive pulmonary disease exacerbation. 2. Tachyarrhythmia. 3. Chronic back pain. 4. Pulmonary fibrosis. 5. Gastritis and reflux disease. PLAN: I am going to continue current treatment. Close observation. Transfer patient to telemetry bed. The patient is insisting on going home. We will watch him today unless he insists, then he can sign against medical advice. cc: Pavel Perez MD
[2019-05-14] MEDS: ZITHROMAX 500 MG/NS 500 MG/250 ML IVPB IV SCH (21:16)
[2019-05-14] MEDS: SODIUM CHLORIDE 0.9% INJ SCH (21:24)
[2019-05-14] MEDS: PROTONIX IV SCH (21:24)
[2019-05-14] MEDS: LOVENOX SUBQ SCH (21:24)
[2019-05-14] MEDS: LYRICA PO SCH (21:24)
--- NOTE | 2019-05-14 22:23 | PULMONOLOGY PROGRESS NOTE ---
DATE: 05/14/2019 SUBJECTIVE: The patient is awake, alert, and conversant. He reports he feels fine this morning. OBJECTIVE: Vital Signs: The patient has been afebrile for the last 24 hours. Blood pressure 124/84, heart rate 89, respiratory rate 16, oxygen saturation 97%. HEENT: Pupils are equal and reactive. Oropharynx appears clear. NECK: Supple. Chest: Reveals decreased breath sounds right base with faint crackles. No significant wheezing. Cardiac: S1-S2. Abdomen: Soft. Extremities: Without edema. LABORATORIES: Chest x-ray reveals chronic bilateral infiltrates with slight elevation of the right hemidiaphragm. Arterial blood gas reveals a pH of 7.44, pCO2 of 50, PO2 of 162. White blood count 13.80, hemoglobin 11.6. IMPRESSION: A 58-year-old with 1. Chronic obstructive pulmonary disease exacerbation. 2. Supraventricular tachycardia without recurrence. 3. Chronic back pain. 4. Fevers with resolution. DISCUSSION: A 58-year-old with problems outlined above. The patient is doing well. PLAN: 1. Could Cardizem. 2. Anticipate discharge home soon on an antibiotic with a steroid taper. cc: MD Pavel Marrero MD
[2019-05-15] MEDS: ZOSYN 3.375 GM in NS 50 ML IV SCH ×2 (04:40→08:43)
[2019-05-15] MEDS: SOLU-MEDROL IV SCH (04:40)
[2019-05-15] MEDS: CARDIZEM PO SCH (05:29)
[2019-05-15] MEDS: NEURONTIN PO SCH ×2 (05:30→06:40)
[2019-05-15 07:33] VITALS: BP 147/89
--- NOTE | 2019-05-15 08:00 | DISCHARGE SUMMARY ---
ADMISSION DATE: 05/11/2019 DISCHARGE DATE: FINAL DISCHARGE DIAGNOSES: 1. Chronic obstructive pulmonary disease exacerbation. 2. Hypoxemic respiratory failure. 3. Supraventricular tachycardia with resolution. 4. Chronic low back pain. 5. 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 6. Gastroesophageal reflux disease. 7. Gastritis. 8. Situational depression. HOSPITAL COURSE: Mr. Barajas is a 58-year-old white gentleman, known case of COPD, chronic pulmonary fibrosis, heavy metal exposure, noncompliant to treatment and followup, admitted with chest congestion, cough, expectoration, hypoxemia. Patient was hypoxemic, admitted initially to the floor. The patient was treated with IV antibiotics, IV steroid, pulmonary toilet, bronchodilator treatment. The patient was doing better. He developed more shortness of breath, tachyarrhythmia. His heart rate went up to 200. We gave him Cardizem drip. The patient was transferred to ICU. Pulmonary consult obtained with Dr. Ray. There was question about COVID-19 exposure and we put the patient in isolation. I tested him for COVID-19 and it was negative. The patient was transferred to the floor. Overall his clinical condition improved. The patient wanted to go home from next day. He does not like to be in the hospital. I did discuss this plan with his son and patient. They both understood and they requested for patient to go home. This morning the patient is doing better and I am planning to discharge him home. The patient claims he never smoked. His problem was related to exposure to heavy metal. Patient does dip. PHYSICAL EXAMINATION: Vital signs: Noted. Neck: Supple. No JVD. Lungs: Bibasilar crepitations. Heart: S1 and S2 heard. Abdomen: Soft, nontender. Bowel sounds present. Extremities: No cyanosis, clubbing. No acute DVT. FOOD SAFETY AUDITOR: Alert, awake. Able to move all 4 limbs. Patient does have tenderness lumbosacral spine. LABORATORY DATA: Done yesterday, WBC count 13.8, hemoglobin 11.6, hematocrit 37.8, platelet count was 330,000. Blood gas pH 7.44, pCO2 of 50, PO2 of 162, this was done on 3 L via nasal cannula. Electrolytes were benign. COVID-19 was negative. Chest x-ray result revealed stable chest. Blood cultures were negative. Influenza test was negative. Overall patient received maximum benefit of hospitalization. Advised patient to stop chewing tobacco. Follow up with me in 1 week. I am going to discharge him home on tapering dose of prednisone, oral antibiotics, continue bronchodilator treatment, continue home medicine. Overall discharge condition satisfactory. cc: Pavel Perez MD
[2019-05-15] MEDS: KLOR-CON PO SCH (08:44)
[2019-05-15] MEDS: PERCOCET-5 PO PRN (08:48)
[2019-05-15] MEDS: MILK OF MAGNESIA PO SCH (08:50)
== END 2019-05-15 10:53 | disposition home or self-care (01) | DRG 191 ==
LOC: SUPCPDRO → ED 13:28 → 4N 17:03 → ICU 05-12 13:36 → 4N 05-14 11:33 → 3N 05-14 23:32
PROVIDERS: ADMIT Internal Medicine; ATTEND Internal Medicine